=== PATIENT | female | born 1945 | race Caucasian/White ===

== ENCOUNTER 2018-10-15 12:41 | Inpatient (IN) | payer OTHER ==
[2018-10-15] VITALS (9 sets, daily range): BP systolic 135–153; BP diastolic 63–79; PULSE 64–83; RESP 17–19; Ht 154.9 cm; Wt 104.0 kg
[~2018-10-15] VITALS: Ht 154.9 cm; Wt 104.0 kg
[~2018-10-15 12:41] MED LIST: BENA20TA4 PO; FOLI-49 PO; GLIM4TAB PO; OMEG100011 PO; SULI150T PO; TYL500 PO
[2018-10-15] MEDS ORDERED: ALBUTEROL 0.083% (NEB) 2.5 MG/3 ML AMP INH STA (12:58)
[2018-10-15] MEDS ORDERED: IPRATROPIUM (NEB) 0.5 MG/2.5 ML AMP INH STA (12:58)
[2018-10-15] MEDS ORDERED: FUROSEMIDE 20 MG INJ IV ONE (14:00)
[2018-10-15] MEDS ORDERED: ONDANSETRON 4 MG INJ IV PRN ×2 (15:00→15:30)
[2018-10-15] MEDS ORDERED: ACETAMINOPHEN 325 MG TAB PO PRN ×2 (15:00→15:30)
[2018-10-15] MEDS ORDERED: SOD CHLORIDE 0.9% 100 ML ONE (15:10)
[2018-10-15] MEDS ORDERED: IODIXANOL LOCM 100 ML BTL ONE (15:10)
--- NOTE | 2018-10-15 15:10 | ERD ---
ER Documentation Chief Complaint Chief Complaint PT HAS BEEN WEAK X 10 DAYS PER DAUGHTER , HPI This is a 72-year-old female that presented to the emergency department brought in by her daughter complaining of generalized weakness and excessive sleepiness that has been present for over 10 days. The patient indicates that the symptoms began after they arrived in [facility]. The patient and her daughter had flown to [facility] to visit family. They indicated that several years ago the patient had been admitted to the intensive care unit in the [place] for similar symptoms of excessive sleepiness. They were subsequently given nebulizer treatments. However she is never required use of these nebulizer treatments until she was in [place]. The daughter indicates that the patient would suddenly fall asleep. Her lips would turn blue and her fingers were turning blue. She was easily arousable but the symptoms concerned her daughter she started to notice the patient appeared to be having shortness of breath and difficulty breathing. They returned from a flight yesterday evening from [facility]. The patient had no fevers or shaking or chills. She has a history of [id number] diabetes mellitus. She does not take medication for blood pressure. She has also been experiencing swelling of her legs for the past 10 days but denies any calf tenderness ROS All systems reviewed and are negative except as per history of present illness. Medications Home Meds Reported Medications Acetaminophen* (Tylenol*) 500 Mg Tab, 500 MG PO Q4H PRN for PAIN LEVEL 1-5, TAB 08/21/15 [place]-3 Fatty Acids/Fish Oil* (Fish Oil *) 1,000 Mg Capsule, 1000 MG PO DAILY, CAP 08/21/15 Benazepril Hcl* (Benazepril Hcl*) 20 Mg Tablet, 20 MG PO DAILY, #30 TAB 08/21/15 Glimepiride* (Glimepiride*) 4 Mg Tablet, 4 MG PO WITH BREAKFAST, TAB 08/21/15 Folic Acid* (Folic Acid*) 1 Mg Tablet, 1 MG PO DAILY, TAB 08/21/15 Sulindac* (Sulindac*) 150 Mg Tablet, 150 MG PO BID, TAB 08/21/15 Allergies Allergies: Coded Allergies: No Known Allergy (Unverified , 10/15/18) PMhx/Soc History of Surgery: Yes (TAHBSO,CHOLECYSTECTOMY) Anesthesia Reaction: No Hx Neurological Disorder: No Hx Respiratory Disorders: No Hx Cardiac Disorders: Yes (HTN) Hx Psychiatric Problems: No Hx Miscellaneous Medical Probl: Yes (DM) Hx Alcohol Use: No Hx Substance Use: No Hx Tobacco Use: No Smoking Status: Never smoker Physical Exam Vitals Vital Signs Date Temp Pulse Resp B/P (MAP) Pulse Ox O2 O2 Flow FiO2 Time Delivery Rate 10/15/18 96.9 16 109/78 100 BIPAP 8.0 14:23 (88) 10/15/18 71 100 40 14:01 10/15/18 78 22 97 Simple 8.0 13:25 Mask 10/15/18 Simple 10.0 13:10 Mask 10/15/18 98.7 78 28 153/73 82 12:51 (99) Physical Exam Constitutional:Well-developed. Well-nourished. HEENT:Normocephalic. Atraumatic.Pupils were equal round reactive to light. Moist mucous membranes.No tonsillar exudates. Neck: No nuchal rigidity. No lymphadenopathy. No posterior cervical spine tenderness or step-offs. Respiratory: Not using accessory muscles of respiration.Lungs were clear to auscultation bilaterally. Bilateral wheezing and rhonchi. No rales. Cardiovascular: Regular rate regular rhythm.No murmurs. No rubs were appreciated .S1, S2 normal. Distal pulses are palpable 2+ bilaterally. GI: Abdomen was soft. Nontender. Non Distended. No pulsatile abdominal masses or bruits. No rebound. No guarding. Bowel sounds were present and normal. Muscle skeletal: Full range of motion of both the upper and lower extremities bilaterally.Normal muscle tone.No assymetrical calf tenderness or swelling. 2+ pitting edema the bilateral lower extremities Skin: No petechia, no purpura. No lesions on the palms or the soles of the feet. No maculopapular rash. NEURO: Patient was alert, awake, orientated x3 however was lethargic and easily arousable to light touch. No facial droop. Gait observed and normal with no ataxia.Speech had regular rate and rhythm. No focal neurological deficits. Result Diagram: 10/15/18 1308 10/15/18 1308 Results 24 hrs Laboratory Tests Test 10/15/18 13:08 10/15/18 13:26 White Blood Count 7.2 10^3/ul Red Blood Count 4.69 10^6/ul Hemoglobin 14.4 g/dl Hematocrit 48.3 % Mean Corpuscular Volume 103.0 fl Mean Corpuscular Hemoglobin 30.7 pg Mean Corpuscular Hemoglobin Concent 29.8 g/dl Red Cell Distribution Width 17.2 % Platelet Count 164 10^3/UL Mean Platelet Volume 12.1 fl Immature Granulocytes % 3.100 % Neutrophils % 72.3 % Lymphocytes % 15.5 % Monocytes % 6.3 % Eosinophils % 1.7 % Basophils % 1.1 % Nucleated Red Blood Cells % 1.1 /100WBC Immature Granulocytes # 0.220 10^3/ul Neutrophils # 5.2 10^3/ul Lymphocytes # 1.1 10^3/ul Monocytes # 0.5 10^3/ul Eosinophils # 0.1 10^3/ul Basophils # 0.1 10^3/ul Nucleated Red Blood Cells # 0.1 10^3/ul Prothrombin Time 13.6 Sec Prothrombin Time Ratio 1.1 INR International Normalized Ratio 1.03 Activated Partial Thromboplast Time 24.8 Sec D-Dimer 5916.40 ng/ml D-Dimer Comment Sodium Level 141 mmol/L Potassium Level 5.0 mmol/L Chloride Level 109 mmol/L Carbon Dioxide Level 23 mmol/L Anion Gap 9 Blood Urea Nitrogen 41 mg/dl Creatinine 1.60 mg/dl Est Glomerular Filtrat Rate mL/min mL/min Glucose Level 360 mg/dl Calcium Level 9.2 mg/dl Total Bilirubin 0.3 mg/dl Direct Bilirubin 0.00 mg/dl Indirect Bilirubin 0.3 mg/dl Aspartate Amino Transf (AST/SGOT) 27 IU/L Alanine Aminotransferase (ALT/SGPT) 60 IU/L Alkaline Phosphatase 83 IU/L Creatine Kinase 37 IU/L Creatine Kinase Index 3.1 Creatinine Kinase MB (Mass) 1.15 ng/ml Troponin I < 0.012 ng/ml B-Type Natriuretic Peptide 5520 PG/ML Total Protein 8.0 g/dl Albumin 3.9 g/dl Globulin 4.10 g/dl Albumin/Globulin Ratio 0.95 Blood Gas Specimen Source Blood arterial Arterial Blood Date Drawn 10/15/2018 1:34:52 PM Arterial Blood pH (Temp corrected) 7.120 Arterial Blood pCO2 (Temp correct) 77.8 mmhg Arterial Blood pO2 (Temp corrected) 155.0 mmHG Arterial Blood HCO3 24.7 mmol/L Arterial Blood Base Excess -6.5 mmol/L Arterial Blood Oxygen Saturation 98.3 mmHG Sudeep Test ACCEPTAB Arterial Blood Gas Puncture Site Right Radial Arterial Blood Carboxyhemoglobin 0.8 % Arterial Blood Methemoglobin 0.3 % Blood Gas A-a O2 Differential 136.0 mmHg Oxyhemoglobin Percent 97.2 % Blood Gas Temperature 37.0 C Blood Gas Modality MASK - SIMPLE FiO2 53.0 % Blood Gas Critical Value Read Back DR. MARTINEZ Blood Gas Notified Whom Jd Blood Gas Notified Time 10/15/2018 1:44:27 PM Current Medications Medications Dose Sig/Keke Start Time Status Last (Trade) Ordered Route PRN Stop Time Admin Dose Reason Admin Albuterol 5 mg ONCE STAT 10/15/18 DC 10/15/18 (Proventil INH 12:58 13:24 0.083% (Neb)) 10/15/18 13:06 Ipratropium 0.5 mg ONCE STAT 10/15/18 DC 10/15/18 [place] INH 12:58 13:24 (Atrovent 10/15/18 13:06 0.02% (Neb)) Furosemide 20 mg ONCE ONCE 10/15/18 DC 10/15/18 (Lasix) IV 14:00 14:06 10/15/18 14:01 Procedures/MDM The patient presented to the emergency department with shortness of breath. My differential diagnosis included but was not limited to upper airway obstruction, CHF, pulmonary embolism, cardiac ischemia, pneumonia, pneumothorax, anemia, drug overdose, pulmonary edema, COPD or asthma. The patient was hypoxic on room air satting at 82%. She immediately was placed on a desk monitor continuous pulse oximetry and IV access was established by nursing staff. The patient was placed on a nonrebreather and her pulse ox improved to 97%. However the patient was drowsy and easily arousable. Given that the patient had recent travel from [place] at a higher altitude I did indicate that this could be a result of possible of underlying sleep apnea, altitude sickness but I do feel is necessary to rule out for the possibility of a pulmonary embolism. The patient was an intermediate pretest probability according to the Wells criteria for pulmonary embolism. I obtained a d-dimer and this was elevated therefore the patient had a CT scan of her chest that showed no evidence of a pulmonary embolism. The patient also had venous duplex ultrasound of the lower extremities with no evidence of DVT. The patient's BUN and creatinine were elevated but she did receive IV fluids given that she had received contrast through the IV. She was explained the risks and benefits of undergoing intravenous studies with contrast but stated they did want the CT scan of the chest to be performed. The patient had a chest radiograph which showed no infiltrates but pulmonary vascular congestion and cardiomegaly with an elevated BNP. She has no underlying history of congestive heart failure. She was placed on a BiPAP to treat the respiratory acidosis. She was now much more alert and awake. 12 Lead EKG tracing ordered and reviewed by myself showed: Normal sinus rhythm of 63 bpm and no arrhythmia. GA interval normal. QRS duration normal. No ST segment elevation No ST segment depression. No changes consistent with acute ischemia. The patient was glucose is elevated at 396 with no evidence of ketosis. She received subcutaneous insulin The patient will be admitted in serious condition to the telemetry service under the care of Dr. Kelly. Critical Care: Time: 65 minutes Treatments/Evaluations: Close monitoring and treatment of unstable vital signs, cardiorespiratory, and neurologic status, while maintaining tight balance of fluid, respiratory, and cardiac interventions. Time does not include performing any of the above billable procedures. Departure Diagnosis: Primary Impression: Congestive heart disease Heart failure type: unspecified Heart failure chronicity: acute Qualified Codes: I50.9 - Heart failure, unspecified Additional Impressions: Respiratory acidosis Hyperglycemia without ketosis Condition: Serious NEISHA MARTINEZ MD Oct 15, 2018 15:09
[2018-10-15] MEDS ORDERED: INSULIN LISPRO 100 UNIT/ML VIAL SC STA (15:11)
[2018-10-15] MEDS ORDERED: SIMV20TA PO (15:21)
[2018-10-15] MEDS ORDERED: GLIM4TAB PO (15:21)
[2018-10-15] MEDS ORDERED: BENA20TA4 PO (15:21)
[2018-10-15] MEDS ORDERED: METF750T2 PO (15:21)
[2018-10-15] MEDS ORDERED: BIMA2.5D BOTH EYES (15:22)
[2018-10-15] MEDS ORDERED: GLUC1CAP48 PO (15:22)
[2018-10-15] MEDS ORDERED: NACL 0.9% 3 ML SYG IV SCH (15:30)
--- NOTE | 2018-10-15 15:54 | HP ---
Date/Time of Note Date/Time of Note DATE: 10/15/18 TIME: 15:32 Assessment/Plan VTE Prophylaxis SCD applied (from Nsg): Yes Pharmacological prophylaxis: LMWH Assessment/Plan Assessment/Plan 72 yo morbidly obese woman with TONYA and likely OHS presents in hypoxic and hypercapnic respiratory failure #Respiratory failure - Likely due to underlying TONYA, missing CPAP for 10 days - Also may have been due to high altitude in [facility]. - ABG shows severe respiratory acidosis - Continue BiPAP for now. - Also CT C/A/P. - Admit to tele for now. Will try to avoid intubation; this patient would be very difficult to extubate. - No evidence of sepsis, will hold off on antibiotics. Follow up cultures. #IDDM - Will hold oral home meds - Start insulin sliding scale - Glargine 15u QHS #CHIQUITA - Cr slightly elevated from baseline 1.00->1.6 - This may represent just progression of CKD - Avoid nephrotoxins (holding home NSAIDs), renally dose all meds. #Macrocytosis - Not associated with anemia - Likely due to reticulocytosis in the presence of uncontrolled sleep apnea and high altitude - Will also check folate, B12. #Elevated BNP #new LE edema - Patient may have new onset heart failure due to cor pulmonale - Will check echo - gentle IV diuresis DVT: lovenox GI: PPI Result Diagram: 10/15/18 1308 10/15/18 1308 HPI/ROS Admit Date/Time Admit Date/Time October 15, 2018 Hx of Present Illness Ms. Malone is a morbidly obese 72 yo woman brought in by family lethargic and minimally responsive. History taken per daughters at bedside; patient is obtunded and cannot answer questions. The patient does have a history of sleep apnea diagnosed 6 years ago while hospitalized, and has been on home CPAP since then. About 10 months ago she was switched to a smaller more compact machine which she has been tolerating well. 10 days ago she went on a trip to [facility] from which she just returned last night. During this time she did not bring her CPAP machine because she thought she'd "take a break from it for a bit". Her daughters noted that during the trip she grew progressively more and more sleepy. She would awaken briefly to stimulation then fall asleep again. She was taken to a clinic and given an oxygen nasal cannula which apparently did help symptoms slightly but not significantly. In the ED she was obtunded, briefly arousable to stimulation before falling back asleep. Tachypneic to 28, saturating 82% on room air. Otherwise afebrile, rate 70s, BP 153/73. Labs concerning for respiratory acidosis with pH 7.12 and CO2 77. She was placed on BiPAP. ROS Subjective hx not possible: pt critical status PMH/Family/Social Past Medical History Sleep apnea Morbid obesity NIDDM HTN Knee arthritis Medications Current Medications Ondansetron HCl (Zofran Inj) 4 mg ER BRIDGE PRN IV NAUSEA/VOMITING; Start 10/15/18 at 15:00; Stop 10/16/18 at 14:59 Acetaminophen (Tylenol Tab) 650 mg ER BRIDGE PRN PO .MILD PAIN 1-3 OR TEMP; Start 10/15/18 at 15:00; Stop 10/16/18 at 14:59 IV Flush (NS 3 ml) 3 ml PER PROTOCOL IV ; Start 10/15/18 at 15:30; Status UNV Ondansetron HCl (Zofran Inj) 4 mg Q6H PRN IV NAUSEA/VOMITING; Start 10/15/18 at 15:30; Status UNV Acetaminophen (Tylenol Tab) 650 mg Q6H PRN PO .PAIN 1-3 OR TEMP; Start 10/15/18 at 15:30; Status UNV Pantoprazole (Protonix Iv) 40 mg DAILY@06 IV ; Start 10/16/18 at 06:00; Status UNV Enoxaparin Sodium (Lovenox) 40 mg DAILY SC ; Start 10/16/18 at 09:00; Status UNV Coded Allergies: No Known Allergy (Unverified , 10/15/18) Past Surgical History L knee meniscal surgery 2016. CORINNE-BSO Cholecystectomy Social History Lives at home, cares for her who has Parkinson's. Normally independent with all ADLs. Alcohol Use: rarely Smoking Status: Never smoker Drug Use: none Exam/Review of Systems Vital Signs Vitals Vital Signs Date Temp Pulse Resp B/P (MAP) Pulse Ox O2 O2 Flow FiO2 Time Delivery Rate 10/15/18 96.9 16 109/78 100 BIPAP 8.0 14:23 (88) 10/15/18 71 40 14:01 Exam Exam Gen: Morbidly obese woman obtunded on BiPAP machine. Neuro: Briefly responsive to tactile stimulation. Does not follow commands. Moving all extremities spontaneously. HEENT: Moist mucous membranes, clear oropharynx Neck: Very wide circumference. No lymphadenopathy. Card: Regular rate and rhythm, distant heart sounds. Pulm: Mechanical breath sounds bilaterally, distant lung sounds. Abd: Soft, nontender. No palpable masses. Ext: 2+ LE pitting edema. Skin: warm, dry, well perfused. KELLEE LEAL MD Oct 15, 2018 15:45
[2018-10-15] MEDS ORDERED: GLUCAGON 1 MG INJ IM PRN (17:00)
[2018-10-15] MEDS ORDERED: GLUCOSE GEL 15 GRAM TUBE PO PRN ×2 (17:00)
[2018-10-15] MEDS ORDERED: DEXTROSE 50% 50 ML SYRINGE IV PRN ×2 (17:00)
[2018-10-15] MEDS ORDERED: GLUCOSE GEL 15 GRAM TUBE BUCCAL PRN (17:00)
[2018-10-15] MEDS: FUROSEMIDE 20 MG INJ IV SCH (17:58)
[2018-10-15] MEDS: INSULIN ASPART [NOVOLOG] 3 ML PEN SC SCH ×2 (18:01→21:00)
[2018-10-15] MEDS: BIMATOPROST 0.01% 2.5 ML BTL BOTH EYES SCH (21:00)
[2018-10-15] MEDS: INSULIN GLARGINE [LANTus] (100 UNITS/ML) SYG SC SCH (22:11)
[2018-10-15] MEDS: ATORVASTATIN 10 MG TAB PO SCH (22:12)
[2018-10-16] VITALS (18 sets, daily range): BP systolic 102–133; BP diastolic 54–69; PULSE 48–81; RESP 18–20
[2018-10-16] MEDS: ACCU-CHEK XX SCH (02:05)
[2018-10-16] MEDS: FUROSEMIDE 20 MG INJ IV SCH ×2 (05:58→17:21)
[2018-10-16] MEDS: INSULIN ASPART [NOVOLOG] 3 ML PEN SC SCH ×4 (08:00→22:03)
[2018-10-16] MEDS: BENAZEPRIL 20 MG TAB PO SCH (08:31)
[2018-10-16] MEDS: FAMOTIDINE 20 MG INJ IV SCH (08:31)
[2018-10-16] MEDS ORDERED: ENOXAPARIN 30 MG/0.3 ML SYG SC SCH (09:00)
[2018-10-16] MEDS ORDERED: ENOXAPARIN 40 MG/0.4 ML SYG SC SCH (09:00)
[2018-10-16] MEDS ORDERED: [UNRECOGNIZED DRUG - OTHER] PO SCH (09:00)
--- NOTE | 2018-10-16 11:37 | PN ---
Date/Time of Note Date/Time of Note DATE: 10/16/18 TIME: 11:30 Assessment/Plan VTE Prophylaxis Risk score (from Nsg)>0 risk: 4 SCD applied (from Nsg): No SCD contraindicated: other (legs too fat. ) Pharmacological prophylaxis: LMWH Lines/Catheters IV Catheter Type (from Nrsg): Saline Lock Assessment/Plan Assessment/Plan 72 yo morbidly obese woman with TONYA and likely OHS presents in hypoxic and hypercapnic respiratory failure #Respiratory failure - resolved - Likely due to underlying TONYA, missing CPAP for 10 days - Also may have been due to high altitude in [facility]. - ABG shows severe respiratory acidosis on admission - CT negative for PE or AA. - Continue nightly BiPAP - Avoid supplemental oxygen as long as sats>88%; this may causing shunting which will worsen CO2 retention. #Morbid obesity - Started low calorie diet. No outside food. #IDDM - Will hold oral home meds - Start insulin sliding scale - Glargine 15u QHS #CHIQUITA - Cr slightly elevated from baseline 1.00->1.6 - This may represent just progression of CKD - Avoid nephrotoxins (holding home NSAIDs), renally dose all meds. #Macrocytosis - Not associated with anemia - Likely due to reticulocytosis in the presence of uncontrolled sleep apnea and high altitude - B12 replete. Folate not back yet. #Elevated BNP #new LE edema - Patient may have new onset heart failure due to cor pulmonale - Will check echo - gentle IV diuresis DVT: lovenox GI: PPI Dispo: Follow up echo. Would probably benefit from a few days of diuresis. Case management consulted for home BiPAP. Also should do desat study prior to discharge to see if she'll need home O2 as well. Result Diagram: 10/16/18 0542 10/16/18 0542 Subjective 24 Hr Interval Summary Free Text/Dictation Condition improved significantly after being on BiPAP for a few hours. Patient is now completely awake and alert. Able to confirm yesterday's history. She clarified that she actually uses a BiPAP prescribed to her . Does not use oxygen during the day although she does feel short of breath often. She said that the lower leg edema is new and only happened in the past 2-3 days. Exam/Review of Systems Exam Vitals Vital Signs Date Temp Pulse Resp B/P (MAP) Pulse Ox O2 O2 Flow FiO2 Time Delivery Rate 10/16/18 Nasal 4.0 08:56 Cannula 10/16/18 73 08:00 10/16/18 98.0 20 133/64 95 07:40 (87) 10/16/18 35 05:23 Intake and Output 10/15/18 10/15/18 10/16/18 1515:00 23:00 07:00 IntakeIntake Total 20 ml OutputOutput Total 3 ml BalanceBalance 17 ml Exam Gen: Morbidly obese woman sitting comfortably in chair. Neuro: Awake and alert, able to give good history. HEENT: Moist mucous membranes, clear oropharynx Neck: Very wide circumference. No lymphadenopathy. Card: Regular rate and rhythm, distant heart sounds. Pulm: Distant lung sounds clear to auscultation bilaterally Abd: Soft, nontender. No palpable masses. Ext: 1+ nonpitting LE edema. Skin: warm, dry, well perfused. Results Results 24hrs Laboratory Tests Test 10/15/18 13:05 10/15/18 13:08 10/15/18 13:26 10/15/18 15:40 Vitamin B12 641 Level Folate White Blood 7.2 # Count Red Blood Count 4.69 Hemoglobin 14.4 Hematocrit 48.3 #H Mean Corpuscular 103.0 H Volume Mean Corpuscular 30.7 Hemoglobin Mean Corpuscular 29.8 L Hemoglobin Thalia nt Red Cell 17.2 #H Distribution Width Platelet Count 164 Mean Platelet 12.1 H Volume Immature 3.100 H Granulocytes % Neutrophils % 72.3 Lymphocytes % 15.5 Monocytes % 6.3 Eosinophils % 1.7 Basophils % 1.1 Nucleated Red 1.1 H Blood Cells % Immature 0.220 H Granulocytes # Neutrophils # 5.2 Lymphocytes # 1.1 Monocytes # 0.5 Eosinophils # 0.1 Basophils # 0.1 Nucleated Red 0.1 H Blood Cells # Prothrombin Time 13.6 Prothrombin Time 1.1 Ratio INR 1.03 International Normalized Ratio Activated 24.8 Partial Thrombop last Time D-Dimer 5916.40 H D-Dimer Comment Sodium Level 141 Potassium Level 5.0 Chloride Level 109 Carbon Dioxide 23 Level Anion Gap 9 Blood Urea 41 H Nitrogen Creatinine 1.60 H Est Glomerular Filtrat Rate mL/min Glucose Level 360 H Calcium Level 9.2 Total Bilirubin 0.3 Direct Bilirubin 0.00 Indirect 0.3 Bilirubin Aspartate Amino 27 Transf (AST/SGOT ) Alanine 60 Aminotransferase (ALT/SGPT) Alkaline 83 Phosphatase Creatine Kinase 37 Creatine Kinase 3.1 Index Creatinine 1.15 Kinase MB (Mass) Troponin I < 0.012 B-Type 5520 H Natriuretic Peptide Total Protein 8.0 Albumin 3.9 Globulin 4.10 H Albumin/Globulin 0.95 Ratio Blood Gas Blood arterial Specimen Source Arterial Blood 10/15/2018 1:34: Date Drawn 52 PM Arterial Blood 7.120 *L pH (Temp corrected) Arterial Blood 77.8 H pCO2 (Temp correct) Arterial Blood 155.0 H pO2 (Temp corrected) Arterial Blood 24.7 HCO3 Arterial Blood -6.5 L Base Excess Arterial Blood 98.3 Oxygen Saturatio n Sudeep Test ACCEPTAB Arterial Blood Right Radial Gas Puncture Site Arterial 0.8 Blood Carboxyhem oglobin Arterial Blood 0.3 Methemoglobin Blood Gas A-a O2 136.0 H Differential Oxyhemoglobin 97.2 Percent Blood Gas 37.0 Temperature Blood Gas MASK - SIMPLE Modality FiO2 53.[address] MARTINEZ Critical Value Read Back Blood Gas Jd Notified Whom Blood Gas 10/15/2018 1:44: Notified Time 27 PM Bedside Glucose 262 H Test 10/15/18 16:00 10/15/18 17:53 10/15/18 20:38 10/16/18 01:48 Blood Gas Blood arterial Specimen Source Arterial Blood 10/15/2018 4:18: Date Drawn 43 PM Arterial Blood 7.159 *L pH (Temp corrected) Arterial Blood 70.1 H pCO2 (Temp correct) Arterial Blood 88.2 pO2 (Temp corrected) Arterial Blood 24.4 HCO3 Arterial Blood -5.9 L Base Excess Arterial Blood 94.7 L Oxygen Saturatio n Sudeep Test ACCEPTAB Arterial Blood Right Radial Gas Puncture Site Arterial 0.7 Blood Carboxyhem oglobin Arterial Blood 0.3 Methemoglobin Blood Gas A-a O2 116.4 H Differential Oxyhemoglobin 93.8 Percent Blood Gas 37.0 Temperature Blood Gas 14.0 Respiration Rate Blood Gas Actual 19 Respiration Rate Blood Gas MASK - BIPAP Modality FiO2 40.0 Blood Gas 10 Pressure Support Blood Gas 15/5 IPAP/EPAP Ratio Blood Gas DR. MARTINEZ Critical Value Read Back Blood Gas Jd Notified Whom Blood Gas 10/15/2018 4:27: Notified Time 43 PM Bedside Glucose 246 H 144 128 Test 10/16/18 05:42 10/16/18 08:36 White Blood 6.7 Count Red Blood Count 4.38 Hemoglobin 13.3 Hematocrit 44.3 Mean Corpuscular 101.1 H Volume Mean Corpuscular 30.4 Hemoglobin Mean Corpuscular 30.0 L Hemoglobin Thalia nt Red Cell 16.8 H Distribution Width Platelet Count 157 Mean Platelet 11.9 H Volume Immature 1.500 H Granulocytes % Neutrophils % 65.5 Lymphocytes % 21.2 Monocytes % 7.2 Eosinophils % 4.0 Basophils % 0.6 Nucleated Red 0.3 H Blood Cells % Immature 0.100 H Granulocytes # Neutrophils # 4.4 Lymphocytes # 1.4 Monocytes # 0.5 Eosinophils # 0.3 Basophils # 0.0 Nucleated Red 0.0 Blood Cells # Sodium Level 145 H Potassium Level 5.0 Chloride Level 111 H Carbon Dioxide 27 Level Anion Gap 7 Blood Urea 38 H Nitrogen Creatinine 1.40 H Est Glomerular Filtrat Rate mL/min Glucose Level 138 # Hemoglobin A1c 11.7 H Calcium Level 9.0 Phosphorus Level 5.1 H Magnesium Level 2.2 Total Bilirubin 0.4 Direct Bilirubin 0.00 Indirect 0.4 Bilirubin Aspartate Amino 24 Transf (AST/SGOT ) Alanine 50 Aminotransferase (ALT/SGPT) Alkaline 63 Phosphatase Total Protein 6.9 # Albumin 3.2 L Globulin 3.70 H Albumin/Globulin 0.86 Ratio Bedside Glucose 118 Medications Medication Current Medications IV Flush (NS 3 ml) 3 ml PER PROTOCOL IV ; Start 10/15/18 at 15:30 Ondansetron HCl (Zofran Inj) 4 mg Q6H PRN IV NAUSEA/VOMITING; Start 10/15/18 at 15:30 Acetaminophen (Tylenol Tab) 650 mg Q6H PRN PO .PAIN 1-3 OR TEMP; Start 10/15/18 at 15:30 Famotidine (Pepcid Iv) 20 mg DAILY IV Last administered on 10/16/18at 08:31; Adm in Dose 20 MG; Start 10/16/18 at 09:00 Benazepril HCl (Lotensin) 20 mg DAILY PO Last administered on 10/16/18at 08:31; Admin Dose 20 MG; Start 10/16/18 at 09:00 Bimatoprost (Lumigan 0.01% Oph) 1 drop HS BOTH EYES ; Start 10/15/18 at 21:00 Atorvastatin Calcium (Lipitor) 10 mg DAILY@21 PO ; Start 10/15/18 at 21:00 Diagnostic Test (Pha) (Accu-Chek) 1 ea 02 XX Last administered on 10/16/18at 02:05; Admin Dose 1 EA; Start 10/16/18 at 02:00 Insulin Aspart (Novolog Insulin Pen) NOVOLOG *MODERATE* ALGORITHM WITH MEALS BEDTIME SC Last administered on 10/15/18at 18:01; Admin Dose 6 UNIT; Start 10/15/18 at 18:00 Insulin Glargine (Lantus) 15 units DAILY@2000 SC Last administered on 10/15/18at 22:11; Admin Dose 15 UNITS; Start 10/15/18 at 20:00 Furosemide (Lasix) 20 mg BID DIURETICS IV Last administered on 10/16/18at 05:58; Admin Dose 20 MG; Start 10/15/18 at 18:00 Miscellaneous Information 1 ea NOTE XX ; Start 10/15/18 at 17:00 Glucose (Glutose) 15 gm Q15M PRN PO DECREASED GLUCOSE; Start 10/15/18 at 17:00 Glucose (Glutose) 22.5 gm Q15M PRN PO DECREASED GLUCOSE; Start 10/15/18 at 17:00 Dextrose (D50w Syringe) 25 ml Q15M PRN IV DECREASED GLUCOSE; Start 10/15/18 at 17:00 Dextrose (D50w Syringe) 50 ml Q15M PRN IV DECREASED GLUCOSE; Start 10/15/18 at 17:00 Glucagon (Glucagen) 1 mg Q15M PRN IM DECREASED GLUCOSE; Start 10/15/18 at 17:00 Glucose (Glutose) 15 gm Q15M PRN BUCCAL DECREASED GLUCOSE; Start 10/15/18 at 17:00 Enoxaparin Sodium (Lovenox) 30 mg DAILY SC Last administered on 10/16/18at 08:48; Admin Dose 30 MG; Start 10/16/18 at 09:00 KELLEE LEAL MD Oct 16, 2018 11:37
--- NOTE | 2018-10-16 13:37 | CONS ---
DATE OF ADMISSION: 10/15/2018 DATE OF CONSULTATION: TYPE OF CONSULTATION: Pulmonary. REASON FOR CONSULTATION: Shortness of breath. Thank you, Dr. Leal, for this consultation. HISTORY OF PRESENT ILLNESS: This is a pleasant 72-year-old lady with a history of obstructive sleep apnea diagnosed approximately 6 years ago, on home CPAP, which she has not had for the past few weeks . She returns from a trip from [place] and states she has had respiratory distress over that. Denies any fever or chills, no chest pain or palpitations. PAST MEDICAL HISTORY: Morbid obesity, obstructive sleep apnea, non insulin-dependent diabetes, essen tial hypertension. MEDICATIONS: Per chart. ALLERGIES: NONE. SOCIAL HISTORY: Nonsmoker, no alcohol, no history of drug use. FAMILY HISTORY: Noncontributory. SYSTEMS REVIEW: A 12-point review of systems was negative other than that mentioned above. PHYSICAL EXAMINATION: GENERAL: Moderately obese lady, comfortable at rest, no acute distress. VITAL SIGNS: Currently afebrile, pulse is 60, blood pressure 116/66, O2 saturation 95% on 4 L nasal cannula. NECK: Supple. No JVD. No lymphadenopathy. CARDIAC: S1, S2, no added sounds or murmurs. CHEST: Diminished air entry bilaterally. ABDOMEN: Soft, nontender. No guarding or rebound. EXTREMITIES: No cyanosis, clubbing or edema. NEUROLOGIC: Generalized weakness, but no focal deficits. LABORATORY DATA: White count 6.7, hemoglobin 13.3, platelets 157. BUN 38, creatinine 1.4. D-dimer was elevated at 5916. IMPRESSION AND PLAN: 1. Acute on chronic hypoxemic and hypercapnic respiratory failure. 2. Possible component of diastolic dysfunction. 3. Mild renal insufficiency. 4. Chronic hypoxemia. The patient will require: 1. Continue noninvasive positive pressure ventilation. 2. Resume outpatient CPAP device. 3. Outpatient pulmonary function testing with id. 4. DVT and GI prophylaxis. 5. Await echocardiogram. 6. Lower extremity Dopplers to rule out deep vein thrombosis. Dictated By: FRANK CORNEJO MD SV/TAD Conf#: [id number] DID#: [id number] CC: KELLEE LEAL MD;*EndCC*
[2018-10-16] MEDS: ATORVASTATIN 10 MG TAB PO SCH (21:59)
[2018-10-16] MEDS: APIXABAN 5 MG TABLET PO SCH (21:59)
[2018-10-16] MEDS: BIMATOPROST 0.01% 2.5 ML BTL BOTH EYES SCH (21:59)
[2018-10-16] MEDS: INSULIN GLARGINE [LANTus] (100 UNITS/ML) SYG SC SCH (22:01)
[2018-10-17] VITALS (14 sets, daily range): BP systolic 115–134; BP diastolic 57–67; PULSE 56–73; RESP 16–19
[2018-10-17] MEDS: ACCU-CHEK XX SCH ×2 (02:00→23:00)
[2018-10-17] MEDS: FUROSEMIDE 20 MG INJ IV SCH (06:07)
[2018-10-17] MEDS: INSULIN ASPART [NOVOLOG] 3 ML PEN SC SCH ×4 (07:39→21:00)
[2018-10-17] MEDS: FAMOTIDINE 20 MG INJ IV SCH (08:15)
[2018-10-17] MEDS: APIXABAN 5 MG TABLET PO SCH ×2 (08:15→21:29)
[2018-10-17] MEDS: BENAZEPRIL 20 MG TAB PO SCH (08:16)
--- NOTE | 2018-10-17 11:15 | PN ---
Date/Time of Note Date/Time of Note DATE: 10/17/18 TIME: 10:58 Assessment/Plan VTE Prophylaxis Risk score (from Nsg)>0 risk: 4 SCD applied (from Ns): No SCD contraindicated: other Pharmacological prophylaxis: apixaban Lines/Catheters [facility]from [facility] [place] Lock Assessment/Plan Hospital Course S: Patient had no acute events overnight, seen by pulmonary team yesterday. O: VS - see below PE: Gen: Morbidly obese woman lying in bed, no acute distress Neuro: Awake and alert, able to give good history. HEENT: Moist mucous membranes, clear oropharynx Neck: Very wide circumference. No lymphadenopathy. Card: Regular rate and rhythm, distant heart sounds. Pulm: Distant lung sounds clear to auscultation bilaterally Abd: Soft, nontender. No palpable masses. Ext: 1+ nonpitting LE edema. Assessment/Plan: 72 yo morbidly obese woman with TONYA and likely OHS presents in hypoxic and hypercapnic respiratory failure #Respiratory failure -resolving now, likely due to underlying TONYA, missing CPAP for 10 days prior to admission- Also may have been due to high altitude in [facility]- ABG showed severe respiratory acidosis on admission- CT negative for PE or AA. -For now monitor, continue nightly BiPAP - Avoid supplemental oxygen as long as sats>88%; this may causing shunting which will worsen CO2 retention-instructed nurse to keep the saturations between 80 and 90% in this particular patient for now. #Morbid obesity - Started low calorie diet. No outside food. #IDDM: A1c was 11.7, sugars presently stable -Continue to hold home oral diabetes meds -Continue insulin sliding scale, Glargine 15u QHS #CHIQUITA- Cr levels coming down, still slightly elevated at 1.23- This may represent just progression of CKD - Avoid nephrotoxins (holding home NSAIDs) -We will hold COLE inhibitor for now, switch IV Lasix to p.o. daily -Monitor daily BUN/creatinine levels #Macrocytosis- Not associated with anemia- Likely due to reticulocytosis in the presence of uncontrolled sleep apnea and high altitude- B12 replete. Folate not back yet. -Monitor for now #Elevated BNP -patient also presented with new LE edema- Patient may have new onset heart failure due to cor pulmonale -Follow-up results of echocardiogram -Continue diuresis with p.o. Lasix today DVT: Eliquis for positive lower extremity DVTs GI: PPI Dispo: Follow up echo results, also case management consulted for home BiPAP. Consider desat study prior to discharge to see if she'll need home O2 as well. Result Diagram: 10/17/18 0551 10/17/18 0551 Results 24hrs Laboratory Tests Test 10/16/18 12:11 10/16/18 17:20 10/16/18 20:46 10/17/18 03:03 Bedside Glucose 129 195 236 H 176 Test 10/17/18 05:51 10/17/18 07:35 White Blood Count 6.1 Red Blood Count 4.44 Hemoglobin 13.6 Hematocrit 44.7 Mean Corpuscular 100.7 Volume Mean Corpuscular 30.6 Hemoglobin Mean Corpuscular 30.4 L Hemoglobin Concent Red Cell 16.6 H Distribution Width Platelet Count 165 Mean Platelet Volume 11.8 H Immature 1.500 H Granulocytes % Neutrophils % 59.3 Lymphocytes % 27.5 Monocytes % 7.5 Eosinophils % 3.7 Basophils % 0.5 Nucleated Red Blood 0.0 Cells % Immature 0.090 H Granulocytes # Neutrophils # 3.6 Lymphocytes # 1.7 Monocytes # 0.5 Eosinophils # 0.2 Basophils # 0.0 Nucleated Red Blood 0.0 Cells # Sodium Level 144 Potassium Level 4.3 Chloride Level 104 Carbon Dioxide Level 31 Anion Gap 9 Blood Urea Nitrogen 38 H Creatinine 1.23 H Est Glomerular Filtrat Rate mL/min Glucose Level 149 Calcium Level 8.5 Phosphorus Level 4.2 Magnesium Level 2.0 Bedside Glucose 138 Exam/Review of Systems Exam Vitals Vital Signs Date Temp Pulse Resp B/P (MAP) Pulse Ox O2 O2 Flow FiO2 Time Delivery Rate 10/17/18 73 10:24 10/17/18 Nasal 6.0 08:25 Cannula 10/17/18 98.1 16 119/67 97 07:17 (84) 10/17/18 35 05:00 Intake and Output 10/16/18 10/16/18 10/17/18 1515:00 23:00 07:00 IntakeIntake Total 300 ml 100 ml OutputOutput Total 800 ml BalanceBalance -500 ml 100 ml Results Results 24hrs Laboratory Tests Test 10/16/18 12:11 10/16/18 17:20 10/16/18 20:46 10/17/18 03:03 Bedside Glucose 129 195 236 H 176 Test 10/17/18 05:51 10/17/18 07:35 White Blood Count 6.1 Red Blood Count 4.44 Hemoglobin 13.6 Hematocrit 44.7 Mean Corpuscular 100.7 Volume Mean Corpuscular 30.6 Hemoglobin Mean Corpuscular 30.4 L Hemoglobin Concent Red Cell 16.6 H Distribution Width Platelet Count 165 Mean Platelet Volume 11.8 H Immature 1.500 H Granulocytes % Neutrophils % 59.3 Lymphocytes % 27.5 Monocytes % 7.5 Eosinophils % 3.7 Basophils % 0.5 Nucleated Red Blood 0.0 Cells % Immature 0.090 H Granulocytes # Neutrophils # 3.6 Lymphocytes # 1.7 Monocytes # 0.5 Eosinophils # 0.2 Basophils # 0.0 Nucleated Red Blood 0.0 Cells # Sodium Level 144 Potassium Level 4.3 Chloride Level 104 Carbon Dioxide Level 31 Anion Gap 9 Blood Urea Nitrogen 38 H Creatinine 1.23 H Est Glomerular Filtrat Rate mL/min Glucose Level 149 Calcium Level 8.5 Phosphorus Level 4.2 Magnesium Level 2.0 Bedside Glucose 138 Medications Medication Current Medications IV Flush (NS 3 ml) 3 ml PER PROTOCOL IV ; Start 10/15/18 at 15:30 Ondansetron HCl (Zofran Inj) 4 mg Q6H PRN IV NAUSEA/VOMITING; Start 10/15/18 at 15:30 Acetaminophen (Tylenol Tab) 650 mg Q6H PRN PO .PAIN 1-3 OR TEMP; Start 10/15/18 at 15:30 Famotidine (Pepcid Iv) 20 mg DAILY IV Last administered on 10/17/18at 08:15; Admin Dose 20 MG; Start 10/16/18 at 09:00 Benazepril HCl (Lotensin) 20 mg DAILY PO Last administered on 10/17/18at 08:16; Admin Dose 20 MG; Start 10/16/18 at 09:00 Bimatoprost (Lumigan 0.01% Oph) 1 drop HS BOTH EYES Last administered on at 21:59; Admin Dose 1 DROP; Start 10/15/18 at 21:00 Atorvastatin Calcium (Lipitor) 10 mg DAILY@21 PO Last administered on 10/16/18at 21:59; Admin Dose 10 MG; Start 10/15/18 at 21:00 Diagnostic Test (Pha) (Accu-Chek) 1 ea 02 XX Last administered on 10/17/18at 02:00; Admin Dose 1 EA; Start 10/16/18 at 02:00 Insulin Aspart (Novolog Insulin Pen) NOVOLOG *MODERATE* ALGORITHM WITH MEALS BEDTIME SC Last administered on 10/16/18at 22:03; Admin Dose 2 UNIT; Start 10/15/18 at 18:00 Insulin Glargine (Lantus) 15 units DAILY@2000 SC Last administered on 10/16/18at 22:01; Admin Dose 15 UNITS; Start 10/15/18 at 20:00 Furosemide (Lasix) 20 mg BID DIURETICS IV Last administered on 10/17/18at 06:07; Admin Dose 20 MG; Start 10/15/18 at 18:00 Miscellaneous Information 1 ea NOTE XX ; Start 10/15/18 at 17:00 Glucose (Glutose) 15 gm Q15M PRN PO DECREASED GLUCOSE; Start 10/15/18 at 17:00 Glucose (Glutose) 22.5 gm Q15M PRN PO DECREASED GLUCOSE; Start 10/15/18 at 17:00 Dextrose (D50w Syringe) 25 ml Q15M PRN IV DECREASED GLUCOSE; Start 10/15/18 at 17:00 Dextrose (D50w Syringe) 50 ml Q15M PRN IV DECREASED GLUCOSE; Start 10/15/18 at 17:00 Glucagon (Glucagen) 1 mg Q15M PRN IM DECREASED GLUCOSE; Start 10/15/18 at 17:00 Glucose (Glutose) 15 gm Q15M PRN BUCCAL DECREASED GLUCOSE; Start 10/15/18 at 17:00 Apixaban (Eliquis) 10 mg BID PO Last administered on 10/17/18at 08:15; Admin Dose 10 MG; Start 10/16/18 at 21:00; Stop 10/22/18 at 23:00 TRINA ANGELES Oct 17, 2018 11:08
--- NOTE | 2018-10-17 12:45 | CONS ---
Consult Date/Type/Reason Admit Date/Time Oct 15, 2018 at 14:57 Initial Consult Date Type of Consult Pulmonary Date/Time of Note DATE: 10/17/18 TIME: 12:42 Subjective Better today. Less shortness of breath. Objective Vital Signs Date Temp Pulse Resp B/P (MAP) Pulse Ox O2 O2 Flow FiO2 Time Delivery Rate 10/17/18 98.0 61 16 115/57 97 11:35 (76) 10/17/18 Nasal 6.0 08:25 Cannula 10/17/18 35 05:00 Intake and Output 10/16/18 10/16/18 10/17/18 1515:00 23:00 07:00 IntakeIntake Total 300 ml 100 ml OutputOutput Total 800 ml BalanceBalance -500 ml 100 ml Exam PHYSICAL EXAMINATION: GENERAL: Moderately obese lady, comfortable at rest, no acute distress. VITAL SIGNS: NECK: Supple. No JVD. No lymphadenopathy. CARDIAC: S1, S2, no added sounds or murmurs. CHEST: Diminished air entry bilaterally. ABDOMEN: Soft, nontender. No guarding or rebound. EXTREMITIES: No cyanosis, clubbing or edema. NEUROLOGIC: Generalized weakness, but no focal deficits. Results/Medications Result Diagram: 10/17/18 0551 10/17/18 0551 Results 24 hrs Laboratory Tests Test 10/16/18 17:20 10/16/18 20:46 10/17/18 03:03 10/17/18 05:51 Bedside Glucose 195 236 H 176 White Blood Count 6.1 Red Blood Count 4.44 Hemoglobin 13.6 Hematocrit 44.7 Mean Corpuscular 100.7 Volume Mean Corpuscular 30.6 Hemoglobin Mean Corpuscular 30.4 L Hemoglobin Concent Red Cell 16.6 H Distribution Width Platelet Count 165 Mean Platelet Volume 11.8 H Immature 1.500 H Granulocytes % Neutrophils % 59.3 Lymphocytes % 27.5 Monocytes % 7.5 Eosinophils % 3.7 Basophils % 0.5 Nucleated Red Blood 0.0 Cells % Immature 0.090 H Granulocytes # Neutrophils # 3.6 Lymphocytes # 1.7 Monocytes # 0.5 Eosinophils # 0.2 Basophils # 0.0 Nucleated Red Blood 0.0 Cells # Sodium Level 144 Potassium Level 4.3 Chloride Level 104 Carbon Dioxide Level 31 Anion Gap 9 Blood Urea Nitrogen 38 H Creatinine 1.23 H Est Glomerular Filtrat Rate mL/min Glucose Level 149 Calcium Level 8.5 Phosphorus Level 4.2 Magnesium Level 2.0 Test 10/17/18 07:35 10/17/18 11:58 Bedside Glucose 138 263 H Medications Current Medications IV Flush (NS 3 ml) 3 ml PER PROTOCOL IV ; Start 10/15/18 at 15:30 Ondansetron HCl (Zofran Inj) 4 mg Q6H PRN IV NAUSEA/VOMITING; Start 10/15/18 at 15:30 Acetaminophen (Tylenol Tab) 650 mg Q6H PRN PO .PAIN 1-3 OR TEMP; Start 10/15/18 at 15:30 Famotidine (Pepcid Iv) 20 mg DAILY IV Last administered on 10/17/18at 08:15; Admin Dose 20 MG; Start 10/16/18 at 09:00 Benazepril HCl (Lotensin) 20 mg DAILY PO Last administered on 10/17/18at 08:16; Admin Dose 20 MG; Start 10/16/18 at 09:00 Bimatoprost (Lumigan 0.01% Oph) 1 drop HS BOTH EYES Last administered on 10/16/18at 21:59; Admin Dose 1 DROP; Start 10/15/18 at 21:00 Atorvastatin Calcium (Lipitor) 10 mg DAILY@21 PO Last administered on 10/16/18at 21:59; Admin Dose 10 MG; Start 10/15/18 at 21:00 Diagnostic Test (Pha) (Accu-Chek) 1 ea 02 XX Last administered on 10/17/18at 02:00; Admin Dose 1 EA; Start 10/16/18 at 02:00 Insulin Aspart (Novolog Insulin Pen) NOVOLOG *MODERATE* ALGORITHM WITH MEALS BEDTIME SC Last administered on 10/17/18at 12:10; Admin Dose 8 UNIT; Start 10/15/18 at 18:00 Insulin Glargine (Lantus) 15 units DAILY@2000 SC Last administered on 10/16/18at 22:01; Admin Dose 15 UNITS; Start 10/15/18 at 20:00 Miscellaneous Information 1 ea NOTE XX ; Start 10/15/18 at 17:00 Glucose (Glutose) 15 gm Q15M PRN PO DECREASED GLUCOSE; Start 10/15/18 at 17:00 Glucose (Glutose) 22.5 gm Q15M PRN PO DECREASED GLUCOSE; Start 10/15/18 at 17:00 Dextrose (D50w Syringe) 25 ml Q15M PRN IV DECREASED GLUCOSE; Start 10/15/18 at 17:00 Dextrose (D50w Syringe) 50 ml Q15M PRN IV DECREASED GLUCOSE; Start 10/15/18 at 17:00 Glucagon (Glucagen) 1 mg Q15M PRN IM DECREASED GLUCOSE; Start 10/15/18 at 17:00 Glucose (Glutose) 15 gm Q15M PRN BUCCAL DECREASED GLUCOSE; Start 10/15/18 at 17 :00 Apixaban (Eliquis) 10 mg BID PO Last administered on 10/17/18at 08:15; Admin Dose 10 MG; Start 10/16/18 at 21:00; Stop 10/22/18 at 23:00 Furosemide (Lasix) 20 mg DAILY PO ; Start 10/18/18 at 09:00 Assessment/Plan Hospital Course (Demo Recall) IMPRESSION AND PLAN: 1. Acute on chronic hypoxemic and hypercapnic respiratory failure. 2. Possible component of diastolic dysfunction. 3. Mild renal insufficiency. 4. Chronic hypoxemia. 5. Acute DVT plan: 1. Continue noninvasive positive pressure ventilation. 2. Resume outpatient CPAP device. 3. Outpatient pulmonary function testing with me. 4. DVT and GI prophylaxis. 5. po anticoagulation. follow up with me as outpatient. FRANK CORNEJO MD, [facility] Oct 17, 2018 12:45
--- NOTE | 2018-10-17 13:04 | PDOCDIS ---
Discharge Instructions CONDITION [id number] Patient Condition: [id number] Stable HOME CARE INSTRUCTIONS: [id number] Diet Instructions: Cdhey9n Low Fat /Cholesterol ACTIVITY: [id number] Activity Restrictions: [id number] Slowly Increase Activity Rest between Activity Avoid heavy lifting FOLLOW UP/APPOINTMENTS Follow-up Plan Please take your medications as prescribed including your new anticoagulant blood pressure medicine for your lower extremity blood clots. Please follow-up with your regular doctor in the clinic in the next 1-2 weeks as well as her pulmonary doctor in the clinic in the next 1 week. TRINA ANGELES Oct 17, 2018 13:04
[2018-10-17] MEDS ORDERED: APIX5TAB PO (13:06)
--- NOTE | 2018-10-17 13:14 | DS ---
Date/Time of Note Date/Time of Note DATE: 10/17/18 TIME: 13:09 Discharge Summary Admission/Discharge Info Admit Date/Time Oct 15, 2018 at 14:57 Discharge Date/Time Discharge Diagnosis #Respiratory failure -resolving now, likely due to underlying TONYA, missing CPAP for 10 days prior to admission #Morbid obesity - Started low calorie diet. No outside food. #IDDM: A1c was 11.7, sugars presently stable #CHIQUITA- Cr levels coming down now #Macrocytosis #Elevated BNP -patient also presented with new LE edema echocardiogram ordered and results pending DVT's: Found bilateral lower extremities on Eliquis now Patient Condition: Stable Procedures Bilateral lower extremity ultrasound: IMPRESSION: New deep venous thrombus within the left popliteal vein. Previously seen deep venous thrombus within the right popliteal vein and additional thrombus within the bilateral calf veins are unchanged. Hx of Present Illness 72 yo woman brought in by family lethargic and minimally responsive. History taken per daughters at bedside; patient is obtunded and cannot answer questions. The patient does have a history of sleep apnea diagnosed 6 years ago while hospitalized, and has been on home CPAP since then. About 10 months ago she was switched to a smaller more compact machine which she has been tolerating well. 10 days ago she went on a trip to [facility] from which she just returned last night. During this time she did not bring her CPAP machine because she thought she'd "take a break from it for a bit". Her daughters noted that during the trip she grew progressively more and more sleepy. She would awaken briefly to stimulation then fall asleep again. She was taken to a clinic and given an oxygen nasal cannula which apparently did help symptoms slightly but not significantly. In the ED she was obtunded, briefly arousable to stimulation before falling back asleep. Tachypneic to 28, saturating 82% on room air. Otherwise afebrile, rate 70s, BP 153/73. Labs concerning for respiratory acidosis with pH 7.12 and CO2 77. She was placed on BiPAP. Hospital Course Patient was admitted and seen by pulmonary team during this hospital stay. Shortness of breath symptoms improved. There was a thought of possible signs of early heart failure, echocardiogram was ordered and results are still pending at the time of this discharge summary. However patient's shortness of breath symptoms as stated above improved. Her lower extremity swelling symptoms improved. She was placed on IV diuresis and this was switched to p.o. diuretic medication on the day of discharge. She was able to ambulate and tolerate p.o. diet. She had some mild renal insufficiency as well but this improved on the day of discharge. We waiting for physical therapy evaluation to see the patient for being discharged with the recommendations later today home in improved condition. Of note she will be on Eliquis as well as she was found with bilateral lower extremity DVTs as well. Vitals were stable, labs are stable otherwise. See below for full list of discharge medications. Home Meds Active Scripts Apixaban* (Eliquis*) 5 Mg Tablet, 10 MG PO BID for 6 Days, TAB Prov:TRINA ANGELES S. 10/17/18 Reported Medications Gluc 2KCL/Chondr/Kyung Hy/Hy Ac (GLUCOSAMINE & CHONDROITIN CAP) 1 Each Capsule, 1 EACH PO DAILY, CAP 10/15/18 Bimatoprost* (Lumigan*) 0.01%-2.5 Ml Opht Drops, 1 DROP BOTH EYES HS, EA 10/15/18 Simvastatin* (Zocor*) 20 Mg Tablet, 20 MG PO QHS, #30 TAB 10/15/18 Glimepiride* (Glimepiride*) 4 Mg Tablet, 4 MG PO WITH BREAKFAST, TAB 10/15/18 Benazepril Hcl* (Benazepril Hcl*) 20 Mg Tablet, 20 MG PO DAILY, #30 TAB 10/15/18 Metformin Hcl* (Metformin Hcl* ER) 750 Mg Tab.sr.24h, 750 MG PO BID, #30 TAB 10/15/18 Discontinued Reported Medications Acetaminophen* (Tylenol*) 500 Mg Tab, 500 MG PO Q4H PRN for PAIN LEVEL 1-5, TAB 08/21/15 Grubbs-3 Fatty Acids/Fish Oil* (Fish Oil *) 1,000 Mg Capsule, 1000 MG PO DAILY, CAP 08/21/15 Benazepril Hcl* (Benazepril Hcl*) 20 Mg Tablet, 20 MG PO DAILY, #30 TAB 08/21/15 Glimepiride* (Glimepiride*) 4 Mg Tablet, 4 MG PO WITH BREAKFAST, TAB 08/21/15 Folic Acid* (Folic Acid*) 1 Mg Tablet, 1 MG PO DAILY, TAB 08/21/15 Sulindac* (Sulindac*) 150 Mg Tablet, 150 MG PO BID, TAB 08/21/15 Follow-up Plan Please take your medications as prescribed including your new anticoagulant blood pressure medicine for your lower extremity blood clots. Please follow-up with your regular doctor in the clinic in the next 1-2 weeks as well as her pulmonary doctor in the clinic in the next 1 week. Primary Care Provider Not On Staff Doctor Time spent on discharge: > 30 minutes Pending Labs Laboratory Tests Test 10/16/18 17:20 10/16/18 20:46 10/17/18 03:03 10/17/18 05:51 Bedside 195 236 176 Glucose mg/dL (70-220) mg/dL (70-220) mg/dL (70-220) White Blood 6.1 Count 10^3/ul (4.8-1 0.8) Red Blood 4.44 Count 10^6/ul (4.20- 5.40) Hemoglobin 13.6 g/dl (12.0-16. 0) Hematocrit 44.7 % (37.0-47.0) Mean 100.7 Corpuscular fl (82.0-101.0 Volume ) Mean 30.6 Corpuscular pg (29.0-33.0) Hemoglobin Mean 30.4 Corpuscular g/dl (32.0-37. Hemoglobin Conc 0) ent Red Cell 16.6 Distribution % (11.5-14.5) Width Platelet Count 165 10^3/UL (140-4 15) Mean Platelet 11.8 Volume fl (7.4-10.4) Immature 1.500 Granulocytes % % (0.001-0.429 ) Neutrophils % 59.3 % (39.0-77.0) Lymphocytes % 27.5 % (15.0-51.0) Monocytes % 7.5 % (0.0-11.0) Eosinophils % 3.7 % (0.0-7.0) Basophils % 0.5 % (0.0-2.0) Nucleated Red 0.0 Blood Cells % /100WBC (0.0-0 .0) Immature 0.090 Granulocytes # 10^3/ul (0.0-0 .031) Neutrophils # 3.6 10^3/ul (1.6-7 .5) Lymphocytes # 1.7 10^3/ul (0.8-2 .9) Monocytes # 0.5 10^3/ul (0.3-0 .9) Eosinophils # 0.2 10^3/ul (0.0-0 .5) Basophils # 0.0 10^3/ul (0.0-0 .1) Nucleated Red 0.0 Blood Cells # 10^3/ul (0.0-0 .0) Sodium Level 144 mmol/L (135-14 4) Potassium 4.3 Level mmol/L (3.5-5. 1) Chloride Level 104 mmol/L (97-110 ) Carbon Dioxide 31 Level mmol/L (21-31) Anion Gap 9 (5-13) Blood Urea 38 Nitrogen mg/dl (7-20) Creatinine 1.23 mg/dl (0.44-1. 00) Est Glomerular mL/min (>60) Filtrat Rate mL/min Glucose Level 149 mg/dl (70-220) Calcium Level 8.5 mg/dl (8.4-10. 2) Phosphorus 4.2 Level mg/dl (2.5-4.9 ) Magnesium 2.0 Level mg/dl (1.7-2.5 ) Test 10/17/18 07:35 10/17/18 11:58 Bedside 138 263 Glucose mg/dL (70-220) mg/dL (70-220) TRINA ANGELES Oct 17, 2018 13:14
--- NOTE | 2018-10-17 19:48 | RADRPT ---
Echocardiogram Report Patient Name: DARIA HENRIQUEZPatient ID: [id number] : 1945 (72y 11m)Study Date: 10/17/2018 7:35:33 AM Gender: FAccession #: [id number] Tech: LennoxJessica Cruz [facility] Location: [facility] Ref.Physician: KELLEE LEAL Height(Cm): BSA: Weight(Kg): Quality: AdequateAccount #: Procedures: Echocardiographic Report: Transthoracic echocardiogram with complete 2D, M-Mode, and doppler examination. Indications: New LE edema, elevated BNP. Measurements: 2D/M Mode Doppler Measurement Value Normal Range Measurement Value Normal Range LVIDd 2D 4.3 [ 3.8 - 5.2 ] cm AV Peak Michael 1.7 [ 100.0 - 170.0 ] cm/sec LVIDs 2D 2.4 [ 2.2 - 3.5 ] cm AV Peak PG 12.0 [ 2.0 - 9.0 ] mmHg LVPWd 2D 1.1 [ 0.6 - 0.9 ] cm LVOT Peak Michael 1.2 [ 70.0 - 110.0 ] cm/sec IVSd 2D 1.1 [ 0.6 - 0.9 ] cm LVOT Peak PG 6.0 [ 2.0 - 6.0 ] mmHg IVS/LVPW 2D 1.0 ratio MV E Peak Michael 0.7 [ 60.0 - 130.0 ] cm/sec AoR Diam 2D 2.4 [ 2.3 - 3.1 ] cm MV A Peak Michael 1.0 [ 100.0 - 120.0 ] cm/sec LA/Ao 2D 1 ratio MV E/A 0.7 [ 0.8 - 1.5 ] ratio LA Dimen 2D 3.4 [ 2.7 - 3.8 ] cm MV Decel Time 239 [ 104 - 258 ] msec Lat E` Michael 0.1 [ 10.0 - 15.0 ] cm/sec MV E/A 0.7 [ 0.8 - 1.5 ] ratio TR Peak Michael 2.7 [ 100.0 - 280.0 ] cm/sec TR Peak PG 28.0 mmHg RVSP 31.0 [ 10.0 - 36.0 ] mmHg RA Pressure 3.0 mmHg Findings: Left Ventricle: Normal left ventricular systolic function. Normal left ventricular cavity size. Mild concentric left ventricular hypertrophy. Ejection fraction is visually estimated at 55 %. Tissue Doppler/Mitral Doppler indices are consistent with impaired relaxation (Stage I diastolic dysfunction). Right Ventricle: Mild enlargement of right ventricle. Mild right ventricular hypokinesis. Left Atrium: The left atrium is normal in size. Right Atrium: There is mild enlargement of right atrium. Mitral Valve: Normal appearance and function of the mitral valve with trace physiologic regurgitation. Aortic Valve: Normal appearance of the aortic valve. No significant aortic stenosis or insufficiency. Tricuspid Valve: Normal appearance of the tricuspid valve. Estimated peak PA systolic pressure 31 mmHg. There is trace tricuspid regurgitation. Pulmonic Valve: Pulmonic valve not well visualized. Pericardium: Normal pericardium with no significant pericardial effusion. Aorta: Normal aortic root. IVC: Normal size and normal respiratory collapse consistent with normal right atrial pressure. Conclusions: Mild concentric left ventricular hypertrophy with normal systolic function. Grade 1 diastolic dysfunction. Mildly dilated RV with mildly reduced systolic function. Mild right atrial enlargement. Trace mitral regurgitation. Trace tricuspid regurgitation with borderline pulmonary pressure elevation. Electronically Signed By: Barb Carroll 2018-10-17 19:47:31 PDT
[2018-10-17] MEDS: ATORVASTATIN 10 MG TAB PO SCH (21:29)
[2018-10-17] MEDS: INSULIN GLARGINE [LANTus] (100 UNITS/ML) SYG SC SCH (21:50)
[2018-10-17] MEDS ORDERED: LATANOPROST 0.005% 2.5 ML OPH BOTH EYES SCH (22:30)
[2018-10-18] VITALS (12 sets, daily range): BP systolic 104–136; BP diastolic 56–68; PULSE 49–68; RESP 16–20
[2018-10-18] MEDS: INSULIN ASPART [NOVOLOG] 3 ML PEN SC SCH ×2 (08:11→12:04)
[2018-10-18] MEDS ORDERED: FUROSEMIDE 20 MG TAB PO SCH (09:00)
[2018-10-18] MEDS ORDERED: FAMOTIDINE 20 MG TAB PO SCH (09:00)
[2018-10-18] MEDS: APIXABAN 5 MG TABLET PO SCH (09:31)
[2018-10-18] MEDS: BENAZEPRIL 20 MG TAB PO SCH (09:37)
--- NOTE | 2018-10-18 11:13 | DS ---
Date/Time of Note Date/Time of Note DATE: 10/18/18 TIME: 11:11 Discharge Summary Admission/Discharge Info Admit Date/Time Oct 15, 2018 at 14:57 Discharge Date/Time Discharge Diagnosis #Respiratory failure -resolving now, likely due to underlying TONYA, missing CPAP for 10 days prior to admission #Morbid obesity - Started low calorie diet. No outside food. #IDDM: A1c was 11.7, sugars presently stable #CHIQUITA- Cr levels coming down now #Macrocytosis #Elevated BNP -patient also presented with new LE edema echocardiogram ordered and results pending DVT's: Found bilateral lower extremities on Eliquis now Patient Condition: Stable Hx of Present Illness 72 yo woman brought in by family lethargic and minimally responsive. History taken per daughters at bedside; patient is obtunded and cannot answer questions. The patient does have a history of sleep apnea diagnosed 6 years ago while hospitalized, and has been on home CPAP since then. About 10 months ago she was switched to a smaller more compact machine which she has been tolerating well. 10 days ago she went on a trip to [facility] from which she just returned last night. During this time she did not bring her CPAP machine because she thought she'd "take a break from it for a bit". Her daughters noted that during the trip she grew progressively more and more sleepy. She would awaken briefly to sti mulation then fall asleep again. She was taken to a clinic and given an oxygen nasal cannula which apparently did help symptoms slightly but not significantly. In the ED she was obtunded, briefly arousable to stimulation before falling back asleep. Tachypneic to 28, saturating 82% on room air. Otherwise afebrile, rate 70s, BP 153/73. Labs concerning for respiratory acidosis with pH 7.12 and CO2 77. She was placed on BiPAP. Hospital Course Patient was admitted and seen by pulmonary team during this hospital stay. Shortness of breath symptoms improved. There was a thought of possible signs of early heart failure, echocardiogram was ordered and results are still pending at the time of this discharge summary. However patient's shortness of breath symptoms as stated above improved. Her lower extremity swelling symptoms improved. She was placed on IV diuresis and this was switched to p.o. diuretic medication on the day of discharge. She was able to ambulate and tolerate p.o. diet. She had some mild renal insufficiency as well but this improved on the day of discharge. Patient will get a prescription for Eliquis as well as she was found with bilateral lower extremity DVTs as well -will take for 3 months. Patient has CPAP machine at home, once case management set up home oxygen that was recommended and ordered by the pulmonology team, she will go home today in i mproved condition - see below for full list of discharge medications. Home Meds Active Scripts Apixaban* (Eliquis*) 5 Mg Tablet, 10 MG PO BID for 6 Days, TAB Prov:TRINA ANGELES S. 10/17/18 Reported Medications Gluc 2KCL/Chondr/Kyung Hy/Hy Ac (GLUCOSAMINE & CHONDROITIN CAP) 1 Each Capsule, 1 EACH PO DAILY, CAP 10/15/18 Bimatoprost* (Lumigan*) 0.01%-2.5 Ml Opht Drops, 1 DROP BOTH EYES HS, EA 10/15/18 Simvastatin* (Zocor*) 20 Mg Tablet, 20 MG PO QHS, #30 TAB 10/15/18 Glimepiride* (Glimepiride*) 4 Mg Tablet, 4 MG PO WITH BREAKFAST, TAB 10/15/18 Benazepril Hcl* (Benazepril Hcl*) 20 Mg Tablet, 20 MG PO DAILY, #30 TAB 10/15/18 Metformin Hcl* (Metformin Hcl* ER) 750 Mg Tab.sr.24h, 750 MG PO BID, #30 TAB 10/15/18 Discontinued Reported Medications Acetaminophen* (Tylenol*) 500 Mg Tab, 500 MG PO Q4H PRN for PAIN LEVEL 1-5, TAB 08/21/15 [place]-3 Fatty Acids/Fish Oil* (Fish Oil *) 1,000 Mg Capsule, 1000 MG PO DAILY, CAP 08/21/15 Benazepril Hcl* (Benazepril Hcl*) 20 Mg Tablet, 20 MG PO DAILY, #30 TAB 08/21/15 Glimepiride* (Glimepiride*) 4 Mg Tablet, 4 MG PO WITH BREAKFAST, TAB 08/21/15 Folic Acid* (Folic Acid*) 1 Mg Tablet, 1 MG PO DAILY, TAB 08/21/15 Sulindac* (Sulindac*) 150 Mg Tablet, 150 MG PO BID, TAB 08/21/15 Follow-up Plan Please take your medications as prescribed including your new anticoagulant blood pressure medicine for your lower extremity blood clots. Please follow-up with your regular doctor in the clinic in the next 1-2 weeks as well as her pulmonary doctor in the clinic in the next 1 week. Primary Care Provider Not On Staff Doctor Time spent on discharge: > 30 minutes Pending Labs Laboratory Tests Test 10/17/18 11:58 10/17/18 17:17 10/17/18 21:32 10/18/18 05:15 Bedside 263 169 168 Glucose mg/dL (70-220) mg/dL (70-220) mg/dL (70-220) White Blood 5.8 Count 10^3/ul (4.8-1 0.8) Red Blood 4.81 Count 10^6/ul (4.20- 5.40) Hemoglobin 14.6 g/dl (12.0-16. 0) Hematocrit 47.5 % (37.0-47.0) Mean 98.8 Corpuscular fl (82.0-101.0 Volume ) Mean 30.4 Corpuscular pg (29.0-33.0) Hemoglobin Mean 30.7 Corpuscular g/dl (32.0-37. Hemoglobin Conc 0) ent Red Cell 16.4 Distribution % (11.5-14.5) Width Platelet Count 185 10^3/UL (140-4 15) Mean Platelet 11.6 Volume fl (7.4-10.4) Immature 0.700 Granulocytes % % (0.001-0.429 ) Neutrophils % 56.8 % (39.0-77.0) Lymphocytes % 29.6 % (15.0-51.0) Monocytes % 7.9 % (0.0-11.0) Eosinophils % 4.3 % (0.0-7.0) Basophils % 0.7 % (0.0-2.0) Nucleated Red 0.0 Blood Cells % /100WBC (0.0-0 .0) Immature 0.040 Granulocytes # 10^3/ul (0.0-0 .031) Neutrophils # 3.3 10^3/ul (1.6-7 .5) Lymphocytes # 1.7 10^3/ul (0.8-2 .9) Monocytes # 0.5 10^3/ul (0.3-0 .9) Eosinophils # 0.3 10^3/ul (0.0-0 .5) Basophils # 0.0 10^3/ul (0.0-0 .1) Nucleated Red 0.0 Blood Cells # 10^3/ul (0.0-0 .0) Sodium Level 145 mmol/L (135-14 4) Potassium 4.1 Level mmol/L (3.5-5. 1) Chloride Level 108 mmol/L (97-110 ) Carbon Dioxide 28 Level mmol/L (21-31) Anion Gap 9 (5-13) Blood Urea 38 Nitrogen mg/dl (7-20) Creatinine 1.16 mg/dl (0.44-1. 00) Est Glomerular mL/min (>60) Filtrat Rate mL/min Glucose Level 152 mg/dl (70-220) Calcium Level 9.1 mg/dl (8.4-10. 2) Phosphorus 4.9 Level mg/dl (2.5-4.9 ) Magnesium 2.0 Level mg/dl (1.7-2.5 ) Test 10/18/18 08:03 Bedside 150 Glucose mg/dL (70-220) TRINA ANGELES Oct 18, 2018 11:13
--- NOTE | 2018-10-18 12:02 | CONS ---
Consult Date/Type/Reason Admit Date/Time Oct 15, 2018 at 14:57 Initial Consult Date Type of Consult Pulmonary Date/Time of Note DATE: 10/18/18 TIME: 12:01 Subjective Patient stable this morning no respiratory distress sitting up in chair in Objective Vital Signs Date Temp Pulse Resp B/P (MAP) Pulse Ox O2 O2 Flow FiO2 Time Delivery Rate 10/18/18 98.0 54 16 104/60 96 11:28 (75) 10/18/18 4.0 05:15 10/18/18 35 03:01 10/17/18 Nasal 20:00 Cannula Intake and Output 10/17/18 10/17/18 10/18/18 1515:00 23:00 07:00 IntakeIntake Total 1000 ml 480 ml BalanceBalance 1000 ml 480 ml Exam PHYSICAL EXAMINATION: GENERAL: Moderately obese lady, comfortable at rest, no acute distress. VITAL SIGNS: NECK: Supple. No JVD. No lymphadenopathy. CARDIAC: S1, S2, no added sounds or murmurs. CHEST: Diminished air entry bilaterally. ABDOMEN: Soft, nontender. No guarding or rebound. EXTREMITIES: No cyanosis, clubbing or edema. NEUROLOGIC: Generalized weakness, but no focal deficits. Results/Medications Result Diagram: 10/18/18 0515 10/18/18 0515 Results 24 hrs Laboratory Tests Test 10/17/18 17:17 10/17/18 21:32 10/18/18 05:15 10/18/18 08:03 Bedside Glucose 169 168 150 White Blood Count 5.8 Red Blood Count 4.81 Hemoglobin 14.6 Hematocrit 47.5 H Mean Corpuscular 98.8 Volume Mean Corpuscular 30.4 Hemoglobin Mean Corpuscular 30.7 L Hemoglobin Concent Red Cell 16.4 H Distribution Width Platelet Count 185 Mean Platelet Volume 11.6 H Immature 0.700 H Granulocytes % Neutrophils % 56.8 Lymphocytes % 29.6 Monocytes % 7.9 Eosinophils % 4.3 Basophils % 0.7 Nucleated Red Blood 0.0 Cells % Immature 0.040 H Granulocytes # Neutrophils # 3.3 Lymphocytes # 1.7 Monocytes # 0.5 Eosinophils # 0.3 Basophils # 0.0 Nucleated Red Blood 0.0 Cells # Sodium Level 145 H Potassium Level 4.1 Chloride Level 108 Carbon Dioxide Level 28 Anion Gap 9 Blood Urea Nitrogen 38 H Creatinine 1.16 H Est Glomerular Filtrat Rate mL/min Glucose Level 152 Calcium Level 9.1 Phosphorus Level 4.9 Magnesium Level 2.0 Medications Current Medications IV Flush (NS 3 ml) 3 ml PER PROTOCOL IV ; Start 10/15/18 at 15:30 Ondansetron HCl (Zofran Inj) 4 mg Q6H PRN IV NAUSEA/VOMITING; Start 10/15/18 at 15:30 Acetaminophen (Tylenol Tab) 650 mg Q6H PRN PO .PAIN 1-3 OR TEMP; Start 10/15/18 at 15:30 Benazepril HCl (Lotensin) 20 mg DAILY PO Last administered on 10/18/18at 09:37; Admin Dose 20 MG; Start 10/16/18 at 09:00 Atorvastatin Calcium (Lipitor) 10 mg DAILY@21 PO Last administered on 10/17/18at 21:29; Admin Dose 10 MG; Start 10/15/18 at 21:00 Diagnostic Test (Pha) (Accu-Chek) 1 ea 02 XX Last administered on 10/17/18at 02: 00; Admin Dose 1 EA; Start 10/16/18 at 02:00 Insulin Aspart (Novolog Insulin Pen) NOVOLOG *MODERATE* ALGORITHM WITH MEALS BEDTIME SC Last administered on 10/18/18at 08:11; Admin Dose 2 UNIT; Start at 18:00 Insulin Glargine (Lantus) 15 units DAILY@2000 SC Last administered on 10/17/18at 21:50; Admin Dose 15 UNITS; Start 10/15/18 at 20:00 Miscellaneous Information 1 ea NOTE XX ; Start 10/15/18 at 17:00 Glucose (Glutose) 15 gm Q15M PRN PO DECREASED GLUCOSE; Start 10/15/18 at 17:00 Glucose (Glutose) 22.5 gm Q15M PRN PO DECREASED GLUCOSE; Start 10/15/18 at 17:00 Dextrose (D50w Syringe) 25 ml Q15M PRN IV DECREASED GLUCOSE; Start 10/15/18 at 17:00 Dextrose (D50w Syringe) 50 ml Q15M PRN IV DECREASED GLUCOSE; Start 10/15/18 at 17:00 Glucagon (Glucagen) 1 mg Q15M PRN IM DECREASED GLUCOSE; Start 10/15/18 at 17:00 Glucose (Glutose) 15 gm Q15M PRN BUCCAL DECREASED GLUCOSE; Start 10/15/18 at 17:00 Apixaban (Eliquis) 10 mg BID PO Last administered on 10/18/18at 09:31; Admin Dose 10 MG; Start 10/16/18 at 21:00; Stop 10/22/18 at 23:00 Furosemide (Lasix) 20 mg DAILY PO Last administered on 10/18/18at 09:37; Admin Dose 20 MG; Start 10/18/18 at 09:00 Famotidine (Pepcid) 20 mg DAILY PO Last administered on 10/18/18at 09:31; Admin Dose 20 MG; Start 10/18/18 at 09:00 Latanoprost (Xalatan) 1 drop HS BOTH EYES Last administered on 10/17/18at 23:00; Admin Dose 1 DROP; Start 10/17/18 at 22:30 Assessment/Plan Hospital Course (Demo Recall) IMPRESSION AND PLAN: 1. Acute on chronic hypoxemic and hypercapnic respiratory failure. 2. Possible component of diastolic dysfunction. 3. Mild renal insufficiency. 4. Chronic hypoxemia. 5. Acute DVT plan: 1. Continue noninvasive positive pressure ventilation. 2. Resume outpatient CPAP device. 3. Outpatient pulmonary function testing with me. 4. DVT and GI prophylaxis. 5. po anticoagulation. follow up with me as outpatient. FRANK CORNEJO MD, [facility] Oct 18, 2018 12:02
== END 2018-10-18 16:47 | disposition home health service (06) | DRG 189 ==
LOC: E/R 12:41 → SUATTDRO 14:54 → 6WM 14:57
PROVIDERS: ADMIT Internal Medicine; ATTEND Hospitalist
PROC: 5A09457 Assistance with Respiratory Ventilation, 24-96 Consecutive Hours, Continuous Positive Airway Pressure (ICD-10-PCS; principal; 2018-10-15)
DX: J96.22 Acute and chronic respiratory failure with hypercapnia (principal); I50.31 Acute diastolic (congestive) heart failure; Z68.41 Body mass index [BMI] 40.0-44.9, adult; I82.4Z3 Acute embolism and thrombosis of unspecified deep veins of distal lower extremity, bilateral; N17.9 Acute kidney failure, unspecified; I11.0 Hypertensive heart disease with heart failure; J96.21 Acute and chronic respiratory failure with hypoxia; E11.9 Type 2 diabetes mellitus without complications; D75.89 Other specified diseases of blood and blood-forming organs; G47.33 Obstructive sleep apnea (adult) (pediatric); E66.01 Morbid (severe) obesity due to excess calories; Z90.710 Acquired absence of both cervix and uterus; Z90.79 Acquired absence of other genital organ(s); Z91.19 Patient's noncompliance with other medical treatment and regimen; Z79.84 Long term (current) use of oral hypoglycemic drugs; Z90.722 Acquired absence of ovaries, bilateral; Z90.49 Acquired absence of other specified parts of digestive tract
CPT/HCPCS: 36600; 71045; 71275; 80048; 80053; 82550; 82553; 82607; 82746; 82803; 82962; 83036; 83735; 83880; 84100; 84484; 85025; 85378; 85610; 85730; 93005; 93306; 93970; 94660; 94664; 96374; 97161; J1650; J1815; J1940; Q9967